=== PATIENT | male | born 1995 | race Caucasian/White ===

== ENCOUNTER 2018-07-31 17:54 | Emergency (ER) | payer OTHER ==
[~2018-07-31] VITALS: Ht 170.2 cm; Wt 89.0 kg
[2018-07-31 18:05] VITALS: BP 137/75; PULSE 113; RESP 18; Ht 170.2 cm; Wt 89.0 kg
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
== END 2018-07-31 18:30 | disposition home or self-care (01) ==
LOC: E/R 17:54
DX: Z77.21 Contact with and (suspected) exposure to potentially hazardous body fluids (principal)
CPT/HCPCS: 80076; 85025; 86703; 86706; 86803; 87340; 99283